=== PATIENT | female | born 1960 | race Caucasian/White ===

== ENCOUNTER → 2017-03-22 | Outpatient (CLI) | payer OTHER ==
[2017-03-22 12:10] LABS: HIV CONSENT ON FILE
[2017-03-24 21:34] LABS: HEPATITIS C RNA TMA QUAL Not detected
== END ==
LOC: C.EMPHLA 10:03
PROVIDERS: ATTEND Emergency Medicine
DX: Z02.89 Encounter for other administrative examinations (principal)